=== PATIENT | female | born 1985 | race Caucasian/White ===

== ENCOUNTER → 2016-12-28 | Outpatient (CLI) | payer BC | LOC: LAB 14:36 | DX: R80.9 Proteinuria, unspecified (principal) | CPT/HCPCS: 81001; 82570; 84156 ==

== ENCOUNTER → 2021-11-18 | Outpatient (CLI) | payer BC, OTHER ==
[~2021-11-18] MED LIST: OMEPRAZOLE20 M1 PO; ONDANSETRON ODT4 MG PO; PHENERGAN 25 MG25 M1 PO
== END ==
LOC: US 11-05 08:30
DX: M79.604 Pain in right leg (principal); K76.0 Fatty (change of) liver, not elsewhere classified
CPT/HCPCS: 76700; 93971